=== PATIENT | male | born 1960 | race Caucasian/White ===

== ENCOUNTER 2019-06-05 11:25 | Inpatient (IN) | payer OTHER, SELFPAY ==
[2019-05-19 13:52] VITALS: BMI 34.1
[2019-06-05] VITALS (15 sets, daily range): BP systolic 117–165; BP diastolic 86–103; PULSE 18–108; RESP 9–18; TEMP 35.6–37.4; O2SAT 91–98; BMI 34.1
--- NOTE | 2019-06-05 | DI.RAD.S_ITS ---
PROCEDURE: XR LUMBAR SPINE 2-3V INDICATIONS: L4-5 TLIF TECHNIQUE: 3 views of the lumbar spine were acquired. COMPARISON: [facility] Outside Film, MR, MR LUMBAR SPINE WITHOUT CONTRAST, 01/15/2019, 8:00. [facility], CR, XR LUMBAR SPINE 2 OR 3 VIEWS, 07/29/2017, 10:32. FINDINGS: Bones: Anatomic alignment is established by recent placement of transverse pedicle screws and bilateral vertical fixation rods spanning the L4-L5 level with reference to prior plain film and MR scanning. The operative intervention also includes placement of an interbody cage disc prosthesis device, centrally positioned. Soft tissues: Overlying bowel gas pattern is normal. No suspicious soft tissue calcifications. IMPRESSION: Normal alignment established postoperatively. Dictated by: Haris Gonzalez M.D. on 06/05/2019 at 16:18 Approved by: Haris Gonzalez M.D. on 06/05/2019 at 16:21
[2019-06-05] MEDS: LACTATED RINGERS 1,000 ML 42 ML IV ×2 (12:08→15:23)
--- NOTE | 2019-06-05 13:00 | PM.PREOP ---
Pre-operative Note Interval Note History & Physical reviewed/Exam performed by Physician: Yes Changes to H&P: No
[2019-06-05] MEDS: CLINDAMYCIN 900 MG/50 ML PIGGYBACK 50 MG IV ×2 (13:21→21:18)
--- NOTE | 2019-06-05 14:00 | SUR.OPER ---
Prone on spine table, head in foam head support, padded chest and pelvic supports, gel pad at knees, lower legs supported by pillows; nipples, genitalia and toes free of pressure, arms secured on foam padded arm boards at <90 degrees abduction. Tape over blanket at thigh secured to table.
[2019-06-05] MEDS: BUPIVACAINE LIPOSOME 266 MG/20 ML VIAL INJ (14:07)
[2019-06-05] MEDS: BUPIVACAINE 0.25% W/ EPI (PF) 10 ML VIAL 30 ML INJ (14:08)
--- NOTE | 2019-06-05 15:59 | P.OP_ITS ---
Operative Date/Time/Diagnoses Date of procedure: 06/05/19 Time of procedure: 13:59 Pre-op diagnosis: 1. L4-5 spinal stenosis 2. L4-5 spondylosis with radiculopathy Post-op diagnosis: same Procedure & Clinicians Procedure: 1. L4-5 Postero-lateral and posterior interbody fusion 2. L4-5 interbody cage placement. 3. L4-5 decompressive laminectomy with bilateral facetecomies 4. L4-5 Posterior non-segmental instrumentation 5. [place] of bone marrow from iliac crest 6. Utilization of microsurgical technique and operating microscope Same procedure as scheduled: Yes Indications: Patient has been having chronic back pain and worsening lumbar radiculopathy. Patient failed multiple conservative management with worsening pain weakness and numbness in her lower extremity. Patient has been having difficulty performing activity of daily living. After discussing risks benefits of treatment options, patient elected proceed with surgery. Surgeon: Alejandro Forman Medical Operations Supervisor: Yolande Snider'Brien Click Yes if Unassisted: No Anesthesia Type: General Operative Notes Closure Type: primary Specimen(s): none sent Prosthetic devices, grafts, tissues, transplants, or devices: Globus revolve screws, Rise cage Estimated Blood Loss (mL): 50 Blood products transfused: none Procedure in detail: Patient was seen in the preoperative area. Risks and benefits of the surgery was discussed with the patient. Informed consent was obtained from the patient and placed in the chart. Surgical site was marked. Patient was taken to the operative room. General anesthesia was administered. Prophylactic antibiotic was given to the patient less than 30 min before the incision was made. Patient was placed into a prone position on the T[place] table. Patient's back was then prepped and draped in the sterile fashion. Time- out was performed at this time. Using AP and lateral C-arm imaging the interval between L4-5 was identified and marked on patient's back. A 2 inch incision 2 in from midline was made on the right side first. The fascia was incised in line with skin incision. Globus MARS retractors was placed inside the incision and docked onto the L4 lamina. Using microsurgical technique and operating microscope, a L4 laminectomy and L4- 5 facetectomy was performed using a Kerrison rongeur. Patient was found have severe central and neural foramen stenosis which was fully decompressed after the decompression was completed. The decompression rendered the L4-5 level grossly unstable and required a fusion procedure at the same time. The disc space at L4-5 was identified. And a total diskectomy was performed at L4-5 level. The endplates were decorticated using a rasp and shaver. The total diskectomy and decortication was performed at L4-5 level in order to to accomplish a L4-5 fusion. The local bone from the laminectomy and facetectomy was saved for local bone grafting. After the total diskectomy and decortication was completed, Bio4 bone graft material was combined with local bone that was harvested earlier. At this time, a separate skin is incision was made over the iliac crest. A Jamshidi needle was inserted into the iliac crest through a separate skin incision. 5 cc of bone marrow aspiration was obtained through the separate skin incision using a Jamshidi needle from the iliac crest. The bone marrow aspiration was combined with local bone and the Bio4 bone grafting material. The bone grafting material was placed into the L4-5 interbody space along with a expandable cage. The cage was expanded to its maximum height using the torque limiting screwdriver. At this time a mirror image incision was made on the left side. The fascia was incised in line with the skin incision. Globus MARS retractor was inserted and docked onto the L4-5 posterolateral gutter. Using the power drill, posterior- lateral decortication was performed at L4-5 level until bleeding cortical bone was identified. The remaining bone grafting material was placed into the L4-5 posterior lateral gutter he order to accomplish posterolateral fusion at the L4- 5 level. Using the double C-arm technique, pedicle screws were placed into the L4-5 pedicles bilaterally. This was done by placing the Jamshidi needle into the pedicles, then placing the guidewires over the Jamshidi needle, and finally placing the cannulated screws over the guidewires bilaterally. After the pedicle screws were placed, 2 titanium rods was locked into the heads of the pedicle screws using locking caps and torque limiting screwdriver. After all the hardware was placed, and confirmed with AP and lateral C-arm imaging, the wound was then irrigated with sterile normal saline and packed with Ray-Jesús gauze for 3 min to accomplish hemostasis. After the gauze was removed the deep fascia was closed with #1 Vicryl suture. The subcutaneous layer was closed with 2-0 Vicryl. The skin was closed with skin kristel. Patient tolerated the procedure well. There were no complications. Complications: none Post-operative Condition: stable Disposition: PACU Plan for aftercare: Admit to inpatient
[2019-06-05] MEDS: HYDROMORPHONE 2 MG INJ IV ×5 (16:22→17:10)
[2019-06-05] MEDS: hydrOXYzine 50 MG/ML INJ 25 MG IM (17:44)
--- NOTE | 2019-06-05 18:08 | SUR.PHASEI ---
Transfer note from PACU: Received handoff report from Esther Shepard RN and continued care at 1740. VSS. O2 Sat WNL on 4L/SOLAR SALES CONSULTANT. Pain level 10. Achy back\leg pain. Medicated per orders. Report called by previous HAZARD MITIGATION OFFICER. Stable for transfer to IP Room 212. VSS on arrival. at bedside. handoff report given to Deepa Augustine RN. Transported with O2 4L/SOLAR SALES CONSULTANT. Sats 93-94% Dressing to back CDI.
[2019-06-05] MEDS: hydrOXYzine pamoate 25 MG CAPSULE PO (18:31)
[2019-06-05] MEDS: OXYCODONE IR 10 MG TABLET PO ×2 (18:31→21:17)
[2019-06-05] MEDS: SODIUM CHLORIDE 0.9% 1,000 ML 100 ML IV (18:34)
[2019-06-05] MEDS: PRAVASTATIN 20 MG TABLET 80 MG PO (21:17)
[2019-06-05] MEDS: DOCUSATE 100 MG CAPSULE PO (21:17)
[2019-06-05] MEDS: LORATADINE 10 MG TABLET PO (21:17)
[2019-06-05] MEDS: SENNOSIDES 8.6 MG TABLET 17.2 MG PO (21:17)
[2019-06-05] MEDS: DULOXETINE 20 MG CAPSULE 80 MG PO (21:19)
[2019-06-06 00:20] VITALS: BP 127/76; PULSE 93; RESP 16; TEMP 36.3; O2SAT 97
[2019-06-06] MEDS: OXYCODONE IR 10 MG TABLET PO (02:52)
[2019-06-06 03:14] VITALS: BP 150/89; PULSE 100; RESP 20; TEMP 36.6; O2SAT 95
[2019-06-06] MEDS: CLINDAMYCIN 900 MG/50 ML PIGGYBACK 50 MG IV (05:28)
[2019-06-06] MEDS: SODIUM CHLORIDE 0.9% 1,000 ML 100 ML IV (05:29)
[2019-06-06 08:00] VITALS: BP 127/75; PULSE 86; RESP 16; TEMP 36.8; O2SAT 94
--- NOTE | 2019-06-06 08:55 | P.PN_ITS ---
Subjective Subjective Date Patient Seen: 06/06/19 Time Patient Seen: 08:56 Interval history: Postop day 1 status post L4-[address] Forman. Pain well controlled this morning with oxycodone, and Vistaril. Patient was provided a script for [place] in the office and would like to try [place] in the hospital. Did require oxygen last night. He does not have a history of sleep apnea that he knows of. He is voiding without difficulty or assistance. Denies chest pain or shortness of breath. Exam Vital Signs (past 8 hours): - 06/06/19 03:14 06/06/19 08:00 Temperature 97.8 F 98.2 F Pulse Rate 100 H 86 Respiratory Rate 20 16 Blood Pressure 150/89 H 127/75 Pulse Oximetry 95 94 Oxygen Delivery Method Nasal Cannula Oxygen Flow Rate 2 Narrative Exam Narrative: Patient is sitting up in no acute distress. He is alert and orient x3. Calves are soft, compressible, nontender bilaterally. SCDs are in place and on. He is able to actively dorsiflex plantar flex. Sensation intact to light touch of bilateral lower extremities. Assessment & Plan Post-op Assessment and plan (1) S/P lumbar fusion: Postoperative Procedures: Procedures Operation Date: 06/05/19 13:45 Actual Procedures Side Surgeon p L4-5 TLIF Not Applicable Alejandro Forman MD Patient will mobilize with Physical therapy this morning. No excessive bending, lifting, or twisting. He is voiding without difficulty or assistance. His pain is well controlled, and he will try taking [place] while in the hospital for pain control. If patient is mobilizing safely, with adequate pain control he may be able to discharge home this afternoon. Quality VTE Deep Vein Thrombosis/Pulmonary Embolism Present on Admission: No
[2019-06-06] MEDS: DOCUSATE 100 MG CAPSULE PO (09:51)
[2019-06-06] MEDS: HYDROCODONE/ACET 10/325 TABLET 1 TAB PO ×2 (09:51→12:57)
[2019-06-06 10:03] VITALS: PULSE 95; RESP 14; O2SAT 95
[2019-06-06 10:19] VITALS: O2SAT 94
--- NOTE | 2019-06-06 10:19 | PC.NURSE ---
Addendum entered by Reba Camarena R.N. 06/06/19 13:14: Discharge: Reviewed all d/c instructions thoroughly with patient and his . Reviewed s/sx with which to call MD office. Reinforced spine precautions. Instructed to leave new dressing on until follow up appt. Follow up as previously scheduled. All personal belongings sent with patient at time of discharge. Sent w/ script for Vistaril, already has other scripts that he filled pre-op. Verbalized understanding of d/c instructions and stated no further questions. Wheeled out to private vehicle by nursing staff. Addendum entered by Reba Camarena R.N. 06/06/19 12:08: Surgical dressing removed and replaced with Coversite dressing per PA's order. Two parallel incisions on either side of spine were well-approximated with kristel. Has bruising around incision sites, but no active bleeding or drainage. Patient has been cleared by PT and OT and plans to head home after lunch. Addendum entered by Reba Camarena R.N. 06/06/19 11:34: Maintaining room air sats 94-95%, improves with activity. Working with PT at this time. Tolerating Vicodin without issue, reports pain well-managed. Original Note: Shift summary: Alert and oriented X3. Removed O2 and he's been maintaining 92-94% on room air. Encouraged coughing and deep breathing. Lungs CTA. HRR. Dressing to mid back C/D/I. CMS+, denies paresthesias. Reported 3/10 back pain at rest- medicated with 1 tab 10/325 Vicodin for the same. IVF per orders, site in R wrist WNL. Able to make needs known and calls appropriately. May d/c home this afternoon if cleared by PT/OT. Call light and belongings within reach, bed alarm on.
[2019-06-06 11:08] VITALS: O2SAT 96
--- NOTE | 2019-06-06 11:09 | OT.IP.EVAL ---
Current Diagnoses Other secondary scoliosis, lumbar region (06/05/19) Spondylolisthesis, lumbar region (06/05/19) Spinal stenosis, lumbar region without neurogenic claudication (06/05/19) Arthrodesis status (06/05/19) Surgery Performed Operation Date: 06/05/19 13:45 Actual Procedures p L4-5 TLIF(Not Applicable) - Alejandro Forman MD Past Medical History (Last Updated 05/21/19 @ 07:23 by Lauren Hassan RN) Acid reflux (Acute) Ascending aortic aneurysm (Acute) Bipolar disorder (Acute) BPH (benign prostatic hyperplasia) (Acute) Helicobacter pylori duodenitis (Acute) Hepatitis (Acute) HLD (hyperlipidemia) (Acute) HTN (hypertension) (Acute) Migraines (Acute) Osteoarthritis (Acute) Sciatica (Acute) Seasonal allergies (Acute) Sinusitis (Acute) Spondylolisthesis of lumbar region (Acute) Surgical History (Last Updated 05/19/19 @ 14:30 by Lauren Hassan RN) History of ankle surgery (Acute) History of surgery (Acute) History of surgery (Acute) Hx of shoulder surgery (Acute) Hx of shoulder surgery (Acute) S/P cervical spinal fusion (Acute ~2004) Occupational Therapy Inpatient Evaluation/Re-Eval M1 PT/OT-IP Prior Functional Status Start: 06/06/19 11:56 Freq: NEEDED Status: Active Protocol: Document 06/06/19 15:37 CGR (Rec: 06/06/19 15:50 CGR [email or web address]) Medical Review Prior Functional Status Medical History Reviewed Yes Diet/Fluid Consistency Regular Communication No problems with communication . Mobility and Gait Limited with extended standing /sitting/walking. Did not use any AD but does have FWW. Activities of Daily Living and IADL's Independent with ADL & IADL's Prior Functional Level (Other details) Driving limited to 45 minutes. Able to do grocery shopping but needed to use grocery cart for support. Light activities around the home. 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 Has had to verbally instruct his clients how to fix items. Social History Household Members spouse Living Arrangements House Number of Floors (Floors) One Floor Number of Stairs To Enter/Railing? 4 steps, handrail right with ascension. Home Environment High Toilet,Tub/Shower Home Equipment Front Wheel Walker Employment Status Self-Employed Additional Social History Comment Pt has his own [employer]. M2 OT-IP Current Condition Start: 06/06/19 15:36 Freq: Status: Active Protocol: Document 06/06/19 15:37 CGR (Rec: 06/06/19 15:50 CGR [email or web address]) Occupational Therapy Current Condition Current Condition Evaluation Date 06/06/19 Treatment Diagnosis L4-5 TLIF Diagnosis Onset Date 06/05/19 Post Operative Precautions Lumbar Precautions Log Roll,No Twisting,Limit Bending,Lifting Restriction of 10 lbs,Gait Belt above Incisional Area M3 OT- IP Subjective and Pain Start: 06/06/19 15:36 Freq: Status: Active Protocol: Document 06/06/19 15:37 CGR (Rec: 06/06/19 15:50 CGR [email or web address]) OT- Subjective Occupational Therapy Visit Type Type Initial Evaluation Visit Start Time 10:08 Visit Stop Time 11:09 Total Visit Minutes 61 Notes P.T. entering as OT exited. Occupational Therapy Visit Comments Patient Comments I am ready to go home. OT Pain Assessment Pain When Pain Assessed At Rest Pain Present Pain Present Pain Reported Location back Intensity 2 Scale Used Numeric (1 - 10) Management Techniques Distraction,Re-positioning M4 OT- IP ADL's Start: 06/06/19 15:36 Freq: Status: Active Protocol: Document 06/06/19 15:37 CGR (Rec: 06/06/19 15:50 CGR [email or web address]) OT [id number] Comments OT Self-Feeding Comments not meal time OT ADL-Grooming General Evaluation Grooming Ability Independent Areas Needing Assistance Retrieving/Set-up of Grooming Items,Combing/Brushing Hair, Face Washing Comments OT Grooming Comments stnading at sink OT ADL-Oral Care General Eval Oral Care Ability Independent Areas of Assistance Brushing Teeth Comments Oral Care Comments standing at sink OT ADL-Dressing General Eval Upper Body Dressing Ability Independent Lower Body Dressing Ability Independent Areas Needing Assistance Retrieving/Set-up of Clothing, Underpants/Brief,Socks Comments OT Dressing Comments Pt was able to don socks and underwear by bringing his foot to his knee. OT ADL-Toileting General Evaluation Toileting Ability Independent Devices Toileting Assistive Devices Grab Bars OT ADL-Bathing Comments OT Bathing Comments not performed in this session. M5 OT- IP IADL's Start: 06/06/19 15:36 Freq: Status: Active Protocol: Document 06/06/19 15:37 CGR (Rec: 06/06/19 15:50 CGR [email or web address]) OT-Instrumental Activities of Daily Living Deficits IADL Deficits Identified No Deficits Home Safety Awareness Awareness of Need for Assistance at Home Good Awareness Ability to Problem Solve Emergency Able to Problem Solve Situations Medication Management Medication Management No Deficits Identified Money Management Money Management No Deficits Identified Meal Preparation Meal Preparation No Deficits Identified Real Estate Site Analyst Real Estate Site Analyst No Deficits Identified M6 OT- IP Functional Cognition Start: 06/06/19 15:36 Freq: Status: Active Protocol: Document 06/06/19 15:37 CGR (Rec: 06/06/19 15:50 CGR [email or web address]) Cognitive Factors Limiting Selfcare Function Cognitive Ability Level of Alertness Alert Patient Orientation Name,Age,Birthday,Month,Date, Year,Day of Week,Place, Situation Attention Span Ability Capable of Focused Attention, Capable of Sustained Attention Ability to Follow Commands Able to Follow Multi-Step Commands Memory Description No Deficits Noted Safety Awareness No Deficits Noted Problem Solving Ability No deficits Noted Executive Function Ability No Deficits Noted Abstract Thinking Ability No Deficits Noted OT- Vision and Hearing OT- Hearing Assessment OT- Hearing Assessment WFL OT- Vision Assessment Visual Acuity Glasses All The Time Visual Attentiveness WFL Occular Pursuits WFL Visual Convergence WFL Visual Acharya WFL M7 OT- IP Mobility and Balance Start: 06/06/19 15:36 Freq: Status: Active Protocol: Document 06/06/19 15:37 CGR (Rec: 06/06/19 15:50 CGR [email or web address]) OT- Bed Mobility Assessment Rolling Type of Rolling Log Rolling,Roll to Right Level of Assistance Independent Supine to Sit Supine to Sit Assist Independent Scooting Scooting to Edge of Bed Independent OT-Transfer Assessment Sit to and From Stand Sit to and from Stand Standby Assistance Transfers Transfer Ability Standby Assistance Technique Transfer Destination Bed,Chair,Toilet Transfer Technique Stand Step Pivot Devices Transfer Assistive Devices Gait Belt,Front Wheeled Walker OT- Gait Assessment Gait Gait Assistance Required: Standby Assistance Assistive Devices Assistive Device Gait Belt,Front Wheeled Walker OT- Balance Assessment Sitting Balance and Reactions Static Sitting Balance Ability Good Dynamic Sitting Balance Ability Fair M8 OT- IP Objective Assessments Start: 06/06/19 15:36 Freq: Status: Active Protocol: Document 06/06/19 15:37 CGR (Rec: 06/06/19 15:50 CGR [email or web address]) OT Gross Range of Motion Upper Extremity Range of Motion Assessment Within Functional Limits OT Strength Upper Extremity Strength Assessment Within Functional Limits OT- Coordination Assessment Upper Extremity Finger to Nose Test Within Functional Limits Finger Tapping Test Within Functional Limits OT-Muscle Tone Assessment Muscle Tone WNL Yes OT Sensation Assessment Edema Edema Absent M9 OT- IP Assessment and Plan Start: 06/06/19 15:36 Freq: Status: Active Protocol: Document 06/06/19 15:37 CGR (Rec: 06/06/19 15:50 CGR [email or web address]) OT Summary Assessment and Plan Potential Rehabilitation Potential Excellent Analytic Complexity at Evaluation Low Summary OT Impairments Pain,Functional Mobility, Shower Transfers Progress Towards Goals Progressing Toward Goals,Safe For Discharge,Goals Met Assessment Summary Pt presents as a low complexity evalution. Pt able to perform LB dressign maintaining his back precautions without AD. Pt safe with self care. No further OT needs. Frequency of Treatment Frequency Of Treatment Discharge Discharge Recommendations OT Discharge Recommendations Home
--- NOTE | 2019-06-06 11:44 | CM.IDA ---
Initial DCP Assessment Note: Pt is a 58 yo male, resident of [facility], now POD#1 from spinal surgery w/ Dr Forman PCP: Jamin Altman Payer: Yvon Reviewed chart, pt discussed in multidisciplinary rounds this morning, pt has planned for home, DC order from Ortho PA has already been initiated this morning. Met w/pt this morning, explained role. Pt eager to return home after therapy session this morning, spouse and family will assist. No needs expected from DC planning team today, although will remain available in case this changes. TOSHIA Ramos
--- NOTE | 2019-06-06 12:28 | PT.IIE ---
Current Diagnoses Other secondary scoliosis, lumbar region (06/05/19) Spondylolisthesis, lumbar region (06/05/19) Spinal stenosis, lumbar region without neurogenic claudication (06/05/19) Arthrodesis status (06/05/19) Surgery Performed Operation Date: 06/05/19 13:45 Actual Procedures p L4-5 TLIF(Not Applicable) - Alejandro Forman MD Surgical History (Last Updated 05/19/19 @ 14:30 by Lauren Hassan RN) History of ankle surgery (Acute) History of surgery (Acute) History of surgery (Acute) Hx of shoulder surgery (Acute) Hx of shoulder surgery (Acute) S/P cervical spinal fusion (Acute ~2004) Medical History (Last Updated 05/21/19 @ 07:23 by Lauren Hassan RN) Acid reflux (Acute) Ascending aortic aneurysm (Acute) Bipolar disorder (Acute) BPH (benign prostatic hyperplasia) (Acute) Helicobacter pylori duodenitis (Acute) Hepatitis (Acute) HLD (hyperlipidemia) (Acute) HTN (hypertension) (Acute) Migraines (Acute) Osteoarthritis (Acute) Sciatica (Acute) Seasonal allergies (Acute) Sinusitis (Acute) Spondylolisthesis of lumbar region (Acute) Physical Therapy Inpatient Evaluation/Re-Eval M1 PT/OT-IP Prior Functional Status Start: 06/06/19 11:56 Freq: NEEDED Status: Active Protocol: Document 06/06/19 11:10 NFW (Rec: 06/06/19 12:28 NFW [id number]) Medical Review Prior Functional Status Medical History Reviewed Yes Diet/Fluid Consistency Regular Communication No problems with communication . Mobility and Gait Limited with extended standing /sitting/walking. Did not use any AD but does have FWW. Activities of Daily Living and IADL's Independent with ADL & IADL's Prior Functional Level (Other details) Driving limited to 45 minutes. Able to do grocery shopping but needed to use grocery cart for support. Light activities around the home. 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 Has had to verbally instruct his clients how to fix items. Social History Household Members spouse Living Arrangements House Number of Floors (Floors) One Floor Number of Stairs To Enter/Railing? 4 steps, handrail right with ascension. Home Environment High Toilet,Tub/Shower Home Equipment Front Wheel Walker Employment Status Self-Employed M2 PT-IP Current Condition Start: 06/06/19 11:56 Freq: NEEDED Status: Active Protocol: Document 06/06/19 11:10 NFW (Rec: 06/06/19 12:28 NFW [id number]) Physical Therapy Current Condition Current Condition Evaluation Date 06/06/19 Treatment Diagnosis s/p L4-5 lumbar fusion w/ interbody cage placement Precautions Lumbar Precautions Log Roll,No Twisting,Limit Bending,Lifting Restriction of 10 lbs,Gait Belt above Incisional Area Weight Bearing Status Weight Bearing Status Full Weight Bearing M3 PT-IP Subjective Start: 06/06/19 11:56 Freq: NEEDED Status: Active Protocol: Document 06/06/19 11:10 NFW (Rec: 06/06/19 12:28 NFW [id number]) Subjective Physical Therapy Visit Type Type Initial Evaluation Visit Start Time 11:10 Visit Stop Time 11:40 Total Visit Minutes 30 Number of CHRONIC CONDITION NURSE Visits 0 Physical Therapy Visit Comments Patient Comments Patient very pleased with results of surgery. Currently minimal complaints of pain in LB or LEs. Patient Goals Return home with . Therapy Pain Assessment Pain When Pain Assessed During Mobility Pain Present Pain Present Denied Pain M4 PT-IP Mobility and Gait Start: 06/06/19 11:56 Freq: NEEDED Status: Active Protocol: Document 06/06/19 11:10 NFW (Rec: 06/06/19 12:28 NFW [id number]) PT-Bed Mobility Assessment Rolling Type of Rolling Log Rolling,Bilateral Level of Assist Independent Supine to Sit Supine to Sit Independent Sit to Supine Sit to Supine Independent Scooting Scooting to Edge of Bed Independent Scooting Up and Down in Bed Independent PT-Transfer Assessment Sit to and From Stand Sit to and from Stand Independent Equipment Transfer Assistive Device Front Wheeled Walker Orthotic/Prosthetic Devices or Brace: No Transfers Transfer Destination Bed,Chair Transfer Ability Level of Assist Independent Comments Mobility Comments Patient showing good body mechanics with bed mobility activities. No assistance required and minimal cuing. Gait Assessment Gait Gait Assistance Required: Standby Assistance Distance (Feet) 500 Able to Maintain Weight Bearing Status Yes During Gait Assistive Devices Assistive Device Gait Belt,Front Wheeled Walker Orthotic/Prosthetic Devices or Brace: No Gait Deviations General Gait Pattern Within Normal Limits Comments Gait Comments Used FWW initially for the first 100', no deviations noted. Ambulated another 400' SBA no walking aids with good form and pace. Stair Climbing Assessment Evaluation Level of Assist On Stairs Independent Devices Stair Climbing Assistive Devices Left Railing,Right Railing Technique/Endurance Stair Climbing Direction Ascend and Descend Stair Climbing Technique Step Over Step Number of Steps Climbed 3 Query Text: Stair Climbing Set # Repetitions (reps) 4 Comments Stair Climbing Comments After instruction, good form used with ascending and descending stairs. PT-Balance Assessment Sitting Balance and Reactions Static Sitting Balance Ability Normal Dynamic Sitting Balance Ability Normal Standing Balance and Reactions Static Standing Balance Ability Normal Dynamic Standing Balance Ability Normal Comments Other Balance Tests/Deviations/Treatment Able to toe and heel walk : without difficulty. M5 PT-IP Objective Assessments Start: 06/06/19 11:56 Freq: NEEDED Status: Active Protocol: Document 06/06/19 11:10 NFW (Rec: 06/06/19 12:28 [facility] [id number]) Orientation Orientation/Cognition Level of Alertness Alert Orientation Name,Age,Birthday,Month,Date, Year,Day of Week,Place, Situation Language Function Ability No Deficits Noted Safety Awareness Understands Safety Issues Gross Range of Motion Upper Extremity ROM Assessment Within Functional Limits Strength Upper Extremity Strength Assessment Within Functional Limits Lower Extremity Strength Assessment Within Functional Limits Muscle Tone Muscle Tone WNL Yes M6 PT-IP Treatment Start: 06/06/19 11:56 Freq: NEEDED Status: Active Protocol: Document 06/06/19 11:10 NFW (Rec: 06/06/19 12:28 [facility] [id number]) Physical Therapy Treatment Education Education Provided Precautions,Weight Bearing Status,Post-Op Packet,Safety Other Treatments Other Treatment Performed Instruction of pacing of activities as he recovers from surgery. Given basics of proper body mechanics to protect the lumbar spine. Recommended that patient start a walking program starting with 5 minutes three times a day and to gradually increase by one minute daily to 20 minutes. Once at 20 minutes decrease frequency to BID but to continue to increase time to 30 minutes. M7 PT-IP Assessment and Plan Start: 06/06/19 11:56 Freq: NEEDED Status: Active Protocol: Document 06/06/19 11:10 NFW (Rec: 06/06/19 12:28 [facility] [id number]) PT Summary Assessment and Plan Potential Rehabilitation Potential Excellent Status of Condition at Evaluation Stable Summary Impairments Activity Tolerance Progress Towards Goals Progressing Toward Goals,Safe For Discharge Assessment Summary Pt s/p L4-5 TLIF. Currently has minimal complaints of pain in LB spine and feels that his strength in returning into LEs. He reveals good form with bed mobilities, he is safe walking without any assistive device. He is able to negotiate stairs using single handrail without difficulty. Stressed pacing of activities and the proper use of body mechanics with home/work activities. Goals Bed Mobility Goal Independent Transfer Goal Independent Gait Goal Independent Frequency of Treatment Frequency Of Treatment Discharge Recommendations To Nursing Amount of Assist Needed Independent Discharge Recommendations PT Discharge Recommendations Home with Assistance
== END 2019-06-06 13:19 | disposition home or self-care (01) | DRG 455 ==
PROVIDERS: Admitting Provider Orthopaedic Surgery Orthopaedic Surgery of the Spine; PCP Ophthalmology; Visit Provider Orthopaedic Surgery Orthopaedic Surgery of the Spine
PROC: 0SG00AJ Fusion of Lumbar Vertebral Joint with Interbody Fusion Device, Posterior Approach, Anterior Column, Open Approach (ICD-10-PCS; principal; 2019-06-05 13:45)
DX: M47.26 Other spondylosis with radiculopathy, lumbar region (principal); M51.16 Intervertebral disc disorders with radiculopathy, lumbar region; M41.56 Other secondary scoliosis, lumbar region; M43.16 Spondylolisthesis, lumbar region; F32.9 Major depressive disorder, single episode, unspecified; I10 Essential (primary) hypertension; E78.5 Hyperlipidemia, unspecified; I71.2 Thoracic aortic aneurysm, without rupture; K21.9 Gastro-esophageal reflux disease without esophagitis; Z87.891 Personal history of nicotine dependence
CPT/HCPCS: 72100; 76000; 97161; 97165; 97530; 97535; C1776; C9290; J0330; J1100; J1170; J2250; J2405; J2704; J3010; J3410

== ENCOUNTER 2023-06-12 06:20 | Inpatient (IN) | payer OTHER, SELFPAY ==
[2019-06-05 18:23] VITALS: BMI 34.1
[2023-06-10 08:30] VITALS: BMI 38.2
[2023-06-12] VITALS (18 sets, daily range): BP systolic 96–149; BP diastolic 53–97; PULSE 18–104; RESP 11–19; TEMP 36.4–37.7; O2SAT 91–96; BMI 38.2
--- NOTE | 2023-06-12 | DI.RAD.S_ITS ---
PROCEDURE: XR LUMBAR SPINE 2-3V INDICATIONS: L2-3 TLIF TECHNIQUE: 3 views of the lumbar spine were acquired. COMPARISON: [facility], CR, XR LUMBAR SPINE 2-3V, 06/05/2019, 15:33. FINDINGS: Intraoperative images demonstrating L2 through L5 posterior fixation there is relatively good anatomic alignment. Intervertebral spacers are present. IMPRESSION: Intraoperative fixation. Dictated by: Ivonne Salas M.D. on 06/12/2023 at 19:33 Approved by: Ivonne Salas M.D. on 06/12/2023 at 19:34
[2023-06-12] MEDS: ALBUTEROL/IPRATROPIUM 3 ML AMPUL INH (07:23)
[2023-06-12] MEDS: LACTATED RINGERS 1,000 ML 42 ML IV ×2 (07:24→09:04)
[2023-06-12] MEDS: ACETAMINOPHEN 325 MG TABLET 975 MG PO (07:24)
[2023-06-12] MEDS: PREGABALIN 75 MG CAPSULE PO (07:24)
--- NOTE | 2023-06-12 07:37 | PM.PREOP ---
Pre-operative Note Interval Note History & Physical reviewed/Exam performed by Physician: Yes Changes to H&P: No
[2023-06-12] MEDS: CEFAZOLIN VIAL 3 GM in SODIUM CHLORIDE 0.9% 100 ML IV ×2 (07:54→16:46)
[2023-06-12] MEDS: BUPIVACAINE 0.25% (PF) 60 ML, EPINEPHrine 0.15 MG INJ (09:01)
[2023-06-12] MEDS: BUPIVACAINE LIPOSOME 266 MG/20 ML VIAL INJ (09:01)
--- NOTE | 2023-06-12 11:54 | P.OP_ITS ---
Operative Date/Time/Diagnoses Date of procedure: 06/12/23 Time of procedure: 07:40 Pre-op diagnosis: 1. L2-3, L3-4 spondylolisthesis 2. L2-3, L3-4 spinal stenosis with neurogenic claudication 3. History of L4-5 fusion with instrumentation Post-op diagnosis: same Procedure & Clinicians Procedure: 1. L2-3, L3-4 posterolateral and posterior interbody fusion 2. L2-3, L3-4 posterior interbody cage placement 3. L4-5 posterior non-segmental instrumentation removal 4. L4-5 revision laminectomy with exploration of fusion 5. L2-3, L3-4, L4-5 posterior segmental instrumentation with pedicle screw placement 6. L4-5 posterolatearl fusion 7. [place] of bone marrow from iliac crest through a separate incision 8. Utilization of microsurgical technique and operating microscope 9. Utilization of robotic asssited navigation Same procedure as scheduled: Yes Indications: Patient has been having chronic back pain and worsening lumbar radiculopathy and symptoms of neurogenic claudication. Patient failed multiple conservative management with worsening pain weakness and numbness in his lower extremity. The patient had prior L4-5 fusion with re tained hardware. Has MRI showing significant L2-3 L3-4 retrolisthesis and severe spinal stenosis correlating with patient's symptoms. Patient has been having difficulty performing activity of daily living. After discussing risks benefits of treatment options, patient elected proceed with surgery. Surgeon: Alejandro Forman Pedicurist: Parris Hairston Click Yes if Unassisted: No Anesthesia Type: General Operative Notes Closure Type: primary Specimen(s): none sent Prosthetic devices, grafts, tissues, transplants, or devices: Globus CREO MIS screws, Rise cages Applied: catheter Estimated Blood Loss (mL): 100 Blood products transfused: none Procedure in detail: Patient was seen in the preoperative area. Risks and benefits of the surgery was discussed with the patient. Informed consent was obtained from the patient and placed in the chart. Surgical site was marked. Patient was taken to the operative room. General anesthesia was administered. Prophylactic antibiotic was given to the patient less than 30 min before the incision was made. Patient was placed into a prone position on the T[place] table. Patient's back was then prepped and draped in the sterile fashion. Time-out was performed at this time. After patient was prepped and draped, patient's PSIS was palpated and marked bilaterally. Small 1 cm incision was made over the PSIS for placement of the reference probes. Two trocar was placed into the PSIS 1 on each side. The reference probe was attached to the trocar of the reference apparatus. At this time the C-arm imaging was used to confirm AP and lateral of L2,L3, L4, L5 vertebrae and merged the C-arm imaging using the [employer] robotic navigation system with the CT of the lumbar spine. After successful merging was completed and confirmed, skin marker was used to gigi out the skin incision using the [employer] robotic arm. Bilateral incision was made at this time. Using patient's previous scar incision was made over the L2, L3, L4, L5 interval on the left side. Fascia was incised in line with skin incision. Patient's previously placed hardware over the L4-5 level was identified by dissecting down to the level the hardware using a Bovie and a Grimes. The locking caps which was removed using [employer] screwdriver. The locking nat was then removed from the tulips of the pedicle screws using a Yuan. The pedicle screws were then removed using the screwdriver. The screws were found to have good purchase. Pre templated trajectory was used and guided using the [employer] robotic navigation system for left L2, L3, L4, L5 pedicle screws and right L2, L3, L4 L5 pedicle screws placement. This was done by using the robotic arm to guide the high-speed bur to make a cortical entry point. Next a drill was placed also using the robotic arm and guided using the navigation system drilling partially through bilateral L2, L3, L4, L5 pedicles. Next L2, L3, L4, L5 pedicle screws it was pre templated and measured was placed onto the power [id number] tank driver and inserted into the pedicles bilaterally. After all 8 screws were placed C-arm imaging was taken of both AP and lateral to confirm the placement. Excellent placement of the screws were confirmed and a matched precisely with the pre planned screw placement using the navigation system. MARs retractor was inserted using [employer] guidence. Alediaus MARS retractors was placed inside the incision and docked onto the L2 and L3 lamina. Using microsurgical technique and operating microscope, a L2, L3 laminectomy and L2-3, L3-4 facetectomy was performed using a Kerrison rongeur. Patient was found have severe lateral recess and neural foramen stenosis which was fully de compressed after the laminectomy facetectomy. The laminectomy and facetectomy was performed in order to decompress patient's cauda equina as well as the nerve roots exiting at the L2-3, L3-4 level. More than 75% of the facets were removed during the process of decompression rendering L2-3, L3-4 level grossly unstable and required a fusion procedure at the same time. The disc space at L2-3, L3-4 was identified, and a total diskectomy was performed at L2-3, L3-4 level. The endplates were decorticated using a rasp and shaver. The total diskectomy and decortication was performed at L2-3, L3-4 level in order to to accomplish a L2- 3, L3-4 fusion. The local bone from the laminectomy and facetectomy was saved for local bone grafting. After the total diskectomy and decortication was completed, Trifecta bone graft material was combined with local bone that was harvested earlier. At this time, a separate skin is incision was made over the iliac crest. A Jamshidi needle was inserted into the iliac crest through a separate skin incision. 5 cc of bone marrow aspiration was obtained through the separate skin incision using a Jamshidi needle from the iliac crest. The bone marrow aspi ration was combined with local bone and the DBM bone grafting material. The bone grafting material was placed into the L2-3, L3-4 interbody space along with a expandable cage. The cage was expanded to its maximum height using the torque limiting screwdriver. The disc preparation as well as the cage insertion were also performed under navigation guidance. After the cage was placed, AP and lateral C-arm imaging was taken to confirm placement of the cage and excellent position was confirmed. The fusion mass on the right side of L4-5 was exposed by performing a right- sided hemilaminectomy at L4-5 level. The hemilaminectomy was performed using the Kerrison rongeur to undercut the lamina as well removing additional epidural scar tissue for purpose of decompressing the epidural space. The fusion mass was explored and was found have visible motion indicating pseudoarthrosis. Globus MARS retractor was inserted and docked onto the L2-3, L3-4, L4-5 posterolateral gutter. Using the power drill, posterior-lateral decortication was performed at L2-3, L3-4, L4-5 level until bleeding cortical bone was identified. The remaining bone grafting material was placed into the L2-3, L3-4, L4-5 posterior lateral gutter he order to accomplish posterolateral fusion at the L2-3, L3-4, L4-5 level. At this time the tulips were attached to the L2, L3, L4-L5 pedicle screw shanks. This was done in L2, L3, L4-L5 pedicles bilaterally. After measuring the length of the rods, they were inserted into the tulips of the pedicle screws and locked in place using locking caps and torque limiting screwdriver bilaterally. Total 8 caps and 2 titanium rods was used in order to complete the posterior instrumentation construct. After all the hardware was placed, and confirmed with AP and lateral C-arm i maging, the wound was then irrigated with sterile normal saline and packed with Ray-Jesús gauze for 3 min to accomplish hemostasis. After the gauze was removed the deep fascia was closed with #1 Vicryl suture. The subcutaneous layer was closed with 2-0 Vicryl. The skin was closed with skin kristel. Patient tolerated the procedure well. There were no complications. Neuro monitoring system was used to monitor patient's neurologic status throughout entire procedure. There was no disturbance of the neural monitoring signals throughout the case. The Operation could not have been safely performed without compromising the technical result or length of the procedure, without the assistance of a skilled neurosurgical physician assistant. The neurosurgical physician assistant was medically necessary for proper positioning, retraction and manipulation of instruments, proper exposure, surgical preparation, and manipulation of tissue. Complications: none Post-operative Condition: stable Disposition: PACU Plan for aftercare: Admit to inpatient hospital
[2023-06-12] MEDS: ALBUTEROL 2.5 MG/3 ML NEB (ADULT) INH (13:05)
[2023-06-12] MEDS: hydrOXYzine 50 MG/ML INJ 25 MG IM (14:00)
[2023-06-12] MEDS: ACETAMINOPHEN 325 MG TABLET 650 MG PO (15:02)
[2023-06-12] MEDS: OXYCODONE IR 10 MG TABLET PO ×2 (15:30→18:35)
--- NOTE | 2023-06-12 16:03 | PT-IP ANOTE ---
PT kami received. EMR reviewed. Checked on pt but pt refused PT. post-op folder provided to pt.
[2023-06-12] MEDS: LACTATED RINGERS 1,000 ML 125 ML IV (16:46)
[2023-06-12] MEDS: hydrOXYzine pamoate 25 MG CAPSULE PO (17:27)
[2023-06-12] MEDS: DOCUSATE 100 MG CAPSULE PO (20:59)
[2023-06-12] MEDS: SENNOSIDES 8.6 MG TABLET 17.2 MG PO (20:59)
[2023-06-12] MEDS: PRAVASTATIN 20 MG TABLET 80 MG PO (20:59)
[2023-06-12] MEDS: PANTOPRAZOLE DR 20 MG TABLET PO (20:59)
[2023-06-12] MEDS: LORATADINE 10 MG TABLET PO (20:59)
[2023-06-12] MEDS: MONTELUKAST 10 MG TABLET PO (20:59)
[2023-06-12] MEDS: DULOXETINE 30 MG CAPSULE 80 MG PO (21:00)
[2023-06-12] MEDS: LOSARTAN 50 MG TABLET PO (21:02)
[2023-06-13] MEDS: CEFAZOLIN VIAL 3 GM in SODIUM CHLORIDE 0.9% 100 ML IV (00:16)
[2023-06-13] MEDS: OXYCODONE IR 10 MG TABLET PO ×7 (00:27→23:47)
[2023-06-13] MEDS: hydrOXYzine pamoate 25 MG CAPSULE PO ×3 (00:28→20:35)
[2023-06-13] MEDS: ACETAMINOPHEN 325 MG TABLET 650 MG PO ×3 (00:28→20:35)
[2023-06-13 02:06] VITALS: BP 113/66; PULSE 85; RESP 17; TEMP 37; O2SAT 94
[2023-06-13 04:00] VITALS: BP 111/70; PULSE 63; RESP 18; TEMP 36.8; O2SAT 95
[2023-06-13] MEDS: LACTATED RINGERS 1,000 ML 125 ML IV (04:32)
[2023-06-13 06:10] LABS: Hematocrit 36.5 % (41-53); Hemoglobin 12.1 g/dL (13.5-17.5)
--- NOTE | 2023-06-13 07:35 | PM.PNPO.1 ---
Subjective Subjective Date Patient Seen: 06/13/23 Time Patient Seen: 07:35 Interval history: Pain has been moderate to severe. Denies fever or chills. No nausea or vomiting. Patient's grandson will be home to assist him. Exam Vital Signs (past 8 hours): - 06/13/23 02:06 06/13/23 04:00 06/13/23 05:27 Temperature 98.6 F 98.2 F Pulse Rate 85 63 Respiratory Rate 17 18 Blood Pressure 113/66 111/70 Pulse Oximetry 94 95 Oxygen Delivery Method CPAP Oxygen Flow Rate 9 3 1 Oxygen Delivery Method CPAP Oxygen Flow Rate 1 Narrative Exam Narrative: 62-year-old male resting comfortably in bed in no apparent distress. Motor function is intact bilateral lower extremities. Sensation grossly intact to light touch bilateral lower extremities. Const General: cooperative and comfortable Nutritional Appearance: average body habitus Orientation: alert Resp Effort & Inspection: normal respiratory effort and able to speak in complete sentences Objective Labs 06/13/23 05:00 Labs: Laboratory Results - last 24 hr 06/13/23 05:00 Hgb 12.1 L Hct 36.5 L PFSH Medical History COPD (chronic obstructive pulmonary disease) Mild ascending aorta dilation MAGI on CPAP HTN (hypertension) Spondylolisthesis of lumbar region Helicobacter pylori duodenitis BPH (benign prostatic hyperplasia) Osteoarthritis Hepatitis Acid reflux HLD (hyperlipidemia) Seasonal allergies Sinusitis Sciatica Migraines Bipolar disorder Surgical History History of prosthetic unicompartmental arthroplasty of right knee History of lumbar spinal fusion (06/05/19) History of surgery History of surgery Hx of shoulder surgery Hx of shoulder surgery S/P cervical spinal fusion (~2004) History of ankle surgery Social History household members: spouse and family Smoking Status: Former smoker alcohol intake: never Assessment & Plan Post-op Postoperative Procedures: Procedures Operation Date: 06/12/23 07:45 Actual Procedure Side Surgeon p L2-3, L3-4 TLIF, L2-5 PSF with revision instrumentation-Robot Alejandro Forman MD Postoperative day: 1 Postoperative status: doing well and marginal pain control Postoperative plan: routine post-op care and ambulate Postoperative plan narrative: Multimodal pain management Discontinue Chávez catheter after mobilizing with physical therapy Discharge likely tomorrow
--- NOTE | 2023-06-13 09:10 | PT.IIE ---
Current Diagnoses Spondylolisthesis, lumbar region (06/12/23) Spinal stenosis, lumbar region with neurogenic claudication (06/12/23) Surgery Performed Operation Date: 06/12/23 07:45 Actual Procedures p L2-3, L3-4 TLIF, L2-5 PSF with revision instrumentation-Robot - Alejandro Forman MD Surgical History (Last Reviewed 06/13/23 @ 07:36 by Mark Draper PA-C) History of ankle surgery History of lumbar spinal fusion (06/05/19) History of prosthetic unicompartmental arthroplasty of right knee History of surgery History of surgery Hx of shoulder surgery Hx of shoulder surgery S/P cervical spinal fusion (~2004) Medical History (Last Reviewed 06/13/23 @ 07:36 by Mark Draper PA-C) Acid reflux Bipolar disorder BPH (benign prostatic hyperplasia) COPD (chronic obstructive pulmonary disease) Helicobacter pylori duodenitis Hepatitis HLD (hyperlipidemia) HTN (hypertension) Migraines Mild ascending aorta dilation MAGI on CPAP Osteoarthritis Sciatica Seasonal allergies Sinusitis Spondylolisthesis of lumbar region Physical Therapy Inpatient Evaluation/Re-Eval M1 PT/OT-IP Prior Functional Status Start: 06/13/23 08:25 Freq: NEEDED Status: Active Protocol: Document 06/13/23 08:40 MB (Rec: 06/13/23 09:09 MB [id number]) Medical Review Prior Functional Status Medical History Reviewed Yes Diet/Fluid Consistency Regular Communication WNLs Mobility and Gait Mod I with rollator or RW Activities of Daily Living and IADL's Mod I Prior Functional Level (Other details) Pt states that he did his bathing, dressing and driving. 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 His grandson works with him and is doing some of their jobs. Social History Household Members spouse,family Living Arrangements House Number of Floors (Floors) One Floor Number of Stairs To Enter/Railing? 1 porch step to enter Home Environment Standard Height Toilet,Tub/ Shower Home Equipment Front Wheel Walker,Four Wheel Walker,Shower Seat without Backrest,Grab Bars In Shower Employment Status Self-Employed M2 PT-IP Current Condition Start: 06/13/23 08:25 Freq: NEEDED Status: Active Protocol: Document 06/13/23 08:40 MB (Rec: 06/13/23 09:09 MB [id number]) Physical Therapy Current Condition Current Condition Evaluation Date 06/13/23 Treatment Diagnosis L2-5 fusion M3 PT-IP Subjective Start: 06/13/23 08:25 Freq: NEEDED Status: Active Protocol: Document 06/13/23 08:40 MB (Rec: 06/13/23 09:09 MB [id number]) Subjective Physical Therapy Visit Type Type Initial Evaluation Visit Start Time 08:40 Visit Stop Time 09:01 Total Visit Minutes 21 Number of BILINGUAL EXECUTIVE ASSISTANT Visits 0 Physical Therapy Visit Comments Patient Comments I've been through this before . Therapy Pain Assessment Pain When Pain Assessed During Mobility Pain Present Pain Present Pain Reported Location back Intensity 6 Description Shooting Pain Management Techniques Distraction,Modification of Treatment,Re-positioning, Timing of Activity with Medications M4 PT-IP Mobility and Gait Start: 06/13/23 08:25 Freq: NEEDED Status: Active Protocol: Document 06/13/23 08:40 MB (Rec: 06/13/23 09:09 [id number]) PT-Bed Mobility Assessment Rolling Type of Rolling Roll to Right Level of Assist Independent,1 Person Assistance Supine to Sit Supine to Sit Independent,1 Person Assistance,Bedrails PT-Transfer Assessment Sit to and From Stand Sit to and from Stand Independent,Standby Assistance ,1 Person Assistance,Use of Upper Extremities Equipment Transfer Assistive Device Gait Belt,Front Wheeled Walker Orthotic/Prosthetic Devices or Brace: No Transfers Transfer Destination Chair Transfer Technique Ambulation Transfer Ability Level of Assist Independent,Standby Assistance ,1 Person Assistance,Use of Upper Extremities Comments Mobility Comments Pt moves cautiously and does well with log roll after instructed in back precautions and log rolling Gait Assessment Gait Gait Assistance Required: Independent,Standby Assistance Distance (Feet) 100 Able to Maintain Weight Bearing Status Yes During Gait Assistive Devices Assistive Device Gait Belt,Front Wheeled Walker Orthotic/Prosthetic Devices or Brace: No Gait Deviations General Gait Pattern Antalgic,Decreased Stride Length Factors Limiting Gait Function Factors Limiting Gait Function Pain Comments Gait Comments Pt gait trains 50'x2, 100'x1 with SBA to mod I with rollator and PT manages IV pole. His gait is slow and he is steady Stair Climbing Assessment Evaluation Level of Assist On Stairs Standby Assistance,Contact Guard Assistance,1 Person Assistance Devices Stair Climbing Assistive Devices Front Wheel Walker Technique/Endurance Stair Climbing Direction Ascend and Descend Stair Climbing Technique Step to Step Number of Steps Climbed 1 Query Text: Stair Climbing Set # Repetitions (reps) 1 Comments Stair Climbing Comments Ed pt in use of RW assistance for ascend and descending porch-like step and pt is able to perform without LOB. He will have grandson assistance at d/c. PT-Balance Assessment Sitting Balance and Reactions Static Sitting Balance Ability Fair Dynamic Sitting Balance Ability Fair Standing Balance and Reactions Static Standing Balance Ability Fair Dynamic Standing Balance Ability Fair Device Used RW M5 PT-IP Objective Assessments Start: 06/13/23 08:25 Freq: NEEDED Status: Active Protocol: Document 06/13/23 08:40 MB (Rec: 06/13/23 09:09 [id number]) Orientation Orientation/Cognition Level of Alertness Alert Orientation Name,Age,Birthday,Month,Date, Year,Day of Week,Place, Situation Language Function Ability No Deficits Noted Safety Awareness Understands Safety Issues Memory Description No Deficits Noted Gross Range of Motion Upper Extremity ROM Assessment Within Functional Limits Lower Extremity ROM Assessment Within Functional Limits Strength Upper Extremity Strength Assessment Within Functional Limits Lower Extremity Strength Assessment Within Functional Limits Comments Strength Comments Deferred MMT post-op Sensation Assessment Sensation Gross Sensation WNL M6 PT-IP Treatment Start: 06/13/23 08:25 Freq: NEEDED Status: Active Protocol: Document 06/13/23 08:40 MB (Rec: 06/13/23 09:09 [id number]) Physical Therapy Treatment Education Education Provided Precautions,Post-Op Packet, Safety M7 PT-IP Assessment and Plan Start: 06/13/23 08:25 Freq: NEEDED Status: Active Protocol: Document 06/13/23 08:40 MB (Rec: 06/13/23 09:09 [id number]) PT Summary Assessment and Plan Potential Rehabilitation Potential Good Status of Condition at Evaluation Stable Summary Impairments Pain Progress Towards Goals Safe For Discharge Assessment Summary Pt is a gentleman who underwent his second back surgery. He reports his first one was with Dr. Forman in 1998. PT provides education about back precautions and log roll technique. Pt has no pain at rest but does have pain with mobility. He does a good job with bed mobility, transfers and gait and several practices of gait and STS transfer. He will have grandson pick him up and assist him at home as his is away d/t recent COVID and not wishing to make pt sick. Frequency of Treatment Frequency Of Treatment Discharge Precautions Lumbar Precautions Log Roll,No Twisting,Limit Bending,Lifting Restriction of 10 lbs,Gait Belt above Incisional Area Weight Bearing Status Weight Bearing Status Weight Bear as Tolerated Recommendations To Nursing Amount of Assist Needed Standby Assistance,1 Person Assist Discharge Recommendations PT Discharge Recommendations Home with 21/01 Assist Available,Outpatient PT Transportation Needs at Discharge Private Vehicle
[2023-06-13 10:00] VITALS: BP 127/82; PULSE 89; RESP 16; TEMP 36.8; O2SAT 93
[2023-06-13] MEDS: DOCUSATE 100 MG CAPSULE PO ×2 (10:05→20:34)
--- NOTE | 2023-06-13 14:08 | CM.DANOTE ---
Patient is a 62 yo male who was admitted on 06/12/23 for TLIF. Pt has [place] for insurance and his PCP is Jamin Altman. EMR was reviewed. Per Ortho PA, pt tolerated procedure well and pain has been moderate and jacinto discontinued today and to work with PT/OT for likely d/c home tomorrow. Per PT, pt was able to participate today and recommending home with assist. 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 Pt states his spouse is active and indep as well but recently tested positive for COVID and has been staying elsewhere so that pt could still have his planned surgery. Pt states his local grandson works with him for employment and has been helping with their scheduled work jobs and grandson plans to be the one to provide transport home and assist until spouse returns home. Pt denies any hx of HH or SNF and does not anticipate any needs at d/c and is hopeful for d/c today vs tomorrow. Plan: SW to follow closely for plan of discharge home via grandson POV and outpt f/u and any further identified discharge planning needs. TOSHIA Carlin Discharge Planning/Care Management CM Discharge Assessment Start: 06/13/23 14:06 Freq: Status: Active Protocol: Document 06/13/23 14:06 (Rec: 06/13/23 14:08 [id number]) Discharge Planning Assessment Assigned Network Manager TOSHIA Maldonado DPOA/Assigned Designee Name spouse Romero Contact Information [phone] Advance Directives? No Advance Directives on File No History Provided By Patient,Family Member,Medical Record Has Patient been admitted in last 30 No days? Prior Living Arrangements House Household Members spouse,family Type of transporation used prior to Drives own vehicle admit Independent with ADL's Yes Is patient alert and oriented? Yes Caregiver for Another No Community Services used prior to Physical Therapy admission: Patient/Family Preference OP PT Therapy Barriers to Discharge No Discharge Plan Home Community Services Physical Therapy Transportation Arrangement Grandson plans to transport at d/c Referrals Initiated None needed Whiteboard Updated in Patient Room with Yes name and ext. # of Network Manager Review Status In Process Please Provide Date Initial DC 06/13/23 Assessment Was Performed Next Review Type Continued Stay Review Pre-Anesthesia Assessment Start: 06/04/23 10:38 Freq: Status: Active Protocol: Document 06/10/23 08:30 CAB (Rec: 06/04/23 12:22 CAB [id number]) Pre-Anesthesia Assessment Preferred Name Marquise Pineda Patient Information Reviewed Via Phone Assessment Assessment Completed With Patient Diagnostic Results BMP/CMP,CBC,EKG Comment Outside labs/EKG scanned Primary Care Provider Kings Rodriguez Seen Specialist in Last 12 Months Yes Specialist Seen Coding Technician,Orthopedist, Hot Baller Comment Pulmonary visit 05/20/23, sleep visit 03/01/23, CT lung scanned Primary Language Belgian Preferred Language Belgian Scale Attendant Required No Height 182.88 cm Weight 127.913 kg Body Mass Index (BMI) 38.2 Hearing Ability Normal Visual Assist Glasses Dentition Type Partial- Lower Barriers to Learning None Other Aids No Hx Anesthesia Reactions No: Morphine-nausea Hx Family Anesthesia Reaction No Hx Malignant Hyperthermia No Hx Blood Transfusions No Anesthesia Review Requested No De Alcholizer No alcohol intake current alcohol intake frequency a few times a month Smoking Status Former smoker how long ago did patient quit smoking Quit 2004 Substance Use Type does not use Pain Present Pain Reported Musculoskeletal Symptoms Abnormal Gait,Back Pain, Difficulty Walking,Joint Pain, Radiating Pain into Limb History of Falling (Recent or History of Yes ) Patient is completely paralyzed or No completely immobile Prosthesis or Orthotic Device Front Wheel Walker Mental Status Oriented to own ability Is patient on oxygen? Yes: 1L02 @ HS Does patient have MOSS/SOB No Hx Sleep Apnea Yes CPAP/BIPAP use prescribed and used routinely Will Bring CPAP/BIPAP DOS Yes Currently Taking a Beta Viky No Hx Chest Pain Yes Hx SOB Yes: hx of MOSS Hx Syncope or Dizziness No Anti-Coagulant Therapy No Has a Coding Technician Yes: Last visit 10/16/[address] Yuen @ [facility] Cardiac Testing Yes: Echo 04/12/23, Stress test @ [facility] 11/19/22 Hx Pacemaker/ICD No Pacemaker Rep Required? No Cardiac Clearance Received Not Applicable Comment Cardiac records scanned Diet Type At Home Regular Dysphagia No Gastrointestinal Symptoms Reflux Urinary Catheter Present No Hx Urinary Self Catheterization No Diabetes No Hx Drug Resistant Organism No Presence of External or Internal Medical Yes: Cervical/Lumbard fusion, Devices right knee, CPAP Received a COVID vaccine? Yes Received all doses? Yes Marital Status Lives With spouse,family Current Living Arrangements House Number of Floors (Floors) One Floor Number of Stairs To Enter/Railing? Ramp Support System Family,Spouse Does the Patient Have Assistance After Yes Surgery Patient Discharge Plan Description Return Home Comment Pt not advised on length of stay per surgeon Feels Safe in Current Environment Yes Been Physically Hurt or Threatened By a No Person in Current Environment Do you have thoughts of harming yourself None or others? Are you currently considering suicide? No Do you have a plan to hurt yourself or No Plan others? Do You Have Any Spiritual Beliefs That No May Affect Your HC Choices? Do You Have Any Cultural Practices That No May Affect Your HC Choices? Who Can We Speak to About Patient's Care Family, friends Identifying Code for Release of Patient Declines to issue Information Health Care Proxy/Next of Kin Romero () Health Care Proxy Emergency Contact Name Romero () Alma Rosa ( daughter) Emergency Contact Phone Number Romero: [phone] Alma Rosa: [phone] Advance Directives? No Power of Farm Products Shipper No PAC Instructions Bring CPAP/BIPAP,Durable medical equipment,Medications to take/avoid,Nasal antibiotic ,No ETOH/petroleum product on skin DOS,NPO,Pre-surgical wash ,Sensory aids,Sturdy shoes/ comfortable clothes,Do not bring valuables and remove jewelry
[2023-06-13 17:00] VITALS: BP 113/68; PULSE 104; RESP 16; TEMP 37.3; O2SAT 95
[2023-06-13] MEDS: PRAVASTATIN 20 MG TABLET 80 MG PO (20:31)
[2023-06-13] MEDS: DULOXETINE 30 MG CAPSULE 80 MG PO (20:32)
[2023-06-13 20:33] VITALS: BP 111/70; PULSE 83
[2023-06-13] MEDS: SENNOSIDES 8.6 MG TABLET 17.2 MG PO (20:33)
[2023-06-13] MEDS: LOSARTAN 50 MG TABLET PO (20:33)
[2023-06-13] MEDS: MONTELUKAST 10 MG TABLET PO (20:33)
[2023-06-13] MEDS: LORATADINE 10 MG TABLET PO (20:34)
[2023-06-13] MEDS: PANTOPRAZOLE DR 20 MG TABLET PO (20:34)
[2023-06-13 21:51] VITALS: BP 115/70; PULSE 88; RESP 16; TEMP 36.7; O2SAT 92
[2023-06-14] MEDS: OXYCODONE IR 10 MG TABLET PO ×3 (04:27→11:06)
[2023-06-14] MEDS: ACETAMINOPHEN 325 MG TABLET 650 MG PO (04:27)
[2023-06-14] MEDS: hydrOXYzine pamoate 25 MG CAPSULE PO (06:26)
--- NOTE | 2023-06-14 06:44 | P.DS_ITS ---
History of Present Illness History of Present Illness Date Patient Seen: 06/14/23 Time Patient Seen: 06:44 Chief complaint: Translam Intrbody Fus./Laminotomy -Robot Narrative: Operative Date/Time/Diagnoses Date of procedure: 06/12/23 Time of procedure: 07:40 Pre-op diagnosis: 1. L2-3, L3-4 spondylolisthesis 2. L2-3, L3-4 spinal stenosis with neurogenic claudication 3. History of L4-5 fusion with instrumentation Post-op diagnosis: same Procedure & Clinicians Procedure: 1. L2-3, L3-4 posterolateral and posterior interbody fusion 2. L2-3, L3-4 posterior interbody cage placement 3. L4-5 posterior non-segmental instrumentation removal 4. L4-5 revision laminectomy with exploration of fusion 5. L2-3, L3-4, L4-5 posterior segmental instrumentation with pedicle screw placement 6. L4-5 posterolatearl fusion 7. [place] of bone marrow from iliac crest through a separate incision 8. Utilization of microsurgical technique and operating microscope 9. Utilization of robotic asssited navigation Same procedure as scheduled: Yes Indications: Patient has been having chronic back pain and worsening lumbar radiculopathy and symptoms of neurogenic claudication. Patient failed multiple conservative management with worsening pain weakness and numbness in his lower extremity. The patient had prior L4-5 fusion with retained hardware. Has MRI showing significant L2-3 L3-4 retrolisthesis and severe spinal stenosis correlating with patient's symptoms. Patient has been having difficulty performing activity of daily living. After discussing risks benefits of treatment options, patient elected proceed with surgery. Surgeon: Alejandro Forman Mattress Inspector: Parris Hairston Click Yes if Unassisted: No Anesthesia Type: General Operative Notes Closure Type: primary Specimen(s): none sent Prosthetic devices, grafts, tissues, transplants, or devices: Globus CREO MIS screws, Rise cages Applied: catheter Estimated Blood Loss (mL): 100 Blood products transfused: none Discharge Providers Provider Date of admission: 06/12/23 06:20 Discharge Date: 06/14/23 Primary care physician: Jamin Altman MD Consults: 06/12/23 14:36 Consult to Occupational Therapy Evaluate & Treat Comment: Physician Instructions: Evaluate and treat Consult to Physical Therapy Evaluate & Treat Comment: Physician Instructions: Evaluate and Treat 06/12/23 15:38 Consult to CAMPUS SAFETY OFFICER - Drafter Civil (Cad) Routine Comment: Discharge provider: Parris Hairston PA-C Summary Hospital Course Discharge Diagnosis: L2-3, L3-4 spondylolisthesis, L2-3, L3-4 spinal stenosis with neurogenic claudication, History of L4-5 fusion with instrumentation; s/p lumbar fusion and posterior hardware revision/extension Hospital Course: Mr Walker'trish hospital course was unremarkable. On the morning of POD# 2, he was feeling well and wanted to go home. He was eating and voiding without difficulty and his pain was well-controlled with oral medication. He was evaluated by PT thoughout his stay and they felt he was appropriate for discharge home w/ assistance; he has his grandson available to help him. Exam Vital Signs (past 8 hours): Oxygen Delivery Method CPAP Oxygen Flow Rate 2 Narrative Exam Narrative: 5/5 strength in hip flexors, quadriceps, hamstrings, DF, PF, EHL bilaterally. Sensation to light touch intact in BLE. Calves soft, compressible, nontender. Dressing placed intraoperatively w/ moderate amount of bloody drainage on left. Objective Labs 06/13/23 05:00 [facility] Medical History COPD (chronic obstructive pulmonary disease) Mild ascending aorta dilation MAGI on CPAP HTN (hypertension) Spondylolisthesis of lumbar region Helicobacter pylori duodenitis BPH (benign prostatic hyperplasia) Osteoarthritis Hepatitis Acid reflux HLD (hyperlipidemia) Seasonal allergies Sinusitis Sciatica Migraines Bipolar disorder Surgical History History of prosthetic unicompartmental arthroplasty of right knee History of lumbar spinal fusion (06/05/19) History of surgery History of surgery Hx of shoulder surgery Hx of shoulder surgery S/P cervical spinal fusion (~2004) History of ankle surgery Social History household members: spouse and family Smoking Status: Former smoker alcohol intake: never Discharge Assessment & Plan Assessment and Plan Assessment: L2-3, L3-4 spondylolisthesis, L2-3, L3-4 spinal stenosis with neurogenic claudication, History of L4-5 fusion with instrumentation; s/p lumbar fusion and posterior hardware revision/extension Plan of Treatment: Discharge home, multimodal pain control, f/u in office as scheduled. Discharge Plan Discharge Plan Patient Disposition: Home Discharge orders & Medications Prescriptions: New oxycodone 5 mg tablet 5 mg PO Q4H PRN (Reason: pain (scale score 4-6)) Qty: 60 0RF acetaminophen 325 mg Tablet 650 mg PO Q6H PRN (Reason: Fever/Mild Pain (1-3)) Qty: 240 0RF docusate sodium 100 mg Capsule 100 mg PO BID PRN (Reason: constipation) Qty: 60 1RF Continued cyclobenzaprine 10 mg Tablet 10 mg PO BEDTIME PRN (Reason: Muscle Spasm) pravastatin 40 mg Tablet 80 mg PO BEDTIME omeprazole 20 mg Capsule,Delayed Release(Dr/Ec) 20 mg PO BEDTIME hydroxyzine HCl 25 mg Tablet 25 mg PO BEDTIME PRN (Reason: Insomnia) duloxetine 60 mg Capsule,Delayed Release(Dr/Ec) 80 mg PO BEDTIME loratadine 10 mg Capsule 10 mg PO BEDTIME losartan 50 mg Tablet 50 mg PO BEDTIME ipratropium-albuterol 0.5 mg-3 mg(2.5 mg base)/3 mL Solution For Nebulization 3 ml INHALATION Q4-6H PRN (Reason: Shortness Of Breath Or Wheezing) alendronate [Fosamax] 70 mg Tablet 70 mg PO QWEEK Patient Comments: Takes on Saturday montelukast 10 mg Tablet 10 mg PO BEDTIME albuterol sulfate 90 mcg/actuation Hfa Aerosol Inhaler 2 puff INHALATION Q4-6H PRN (Reason: Shortness Of Breath) Discontinued hydrocodone-acetaminophen 5-325 mg Tablet 0.5 tab PO Q4-6H PRN (Reason: Pain) naproxen 500 mg Tablet 1,000 mg PO BEDTIME Follow up/Referrals: Alejandro Forman MD [Physician] - As previously scheduled (Follow up with Jj Delgado PA-C, on 06/28/2023 @ 10:00 am at [facility] in [place].) Jamin Altman MD [Primary Care Provider] - Diet/Activity/Treatments Diet: Diet as Tolerated Activity: No deep bending or twisting at the waist. No lifting more than 10 pounds. Cold/Heat Therapy: Heating pad to low back as needed for pain. Skin/Wound/Dressing Care Report to your healthcare provider any signs of infection, such as:: chills, fever, night sweats, unusual drainage and unusual redness Dressing: May shower. Keep dressing as dry as possible. If dressing becomes wet or dirty, remove and replace with clean, dry gauze. No bathing or otherwise soaking incisions. Do not apply any creams, lotions, or ointments to incisions. Visit Report/Discharge Packet Instructions: DI for Transforaminal Lumbar Interbody Fusion, DI for Prescription Opioid Use Stand Alone Forms: Patient Portal/API, Stroke Signs & Symptoms, Surgery Discharge Discharge Data Primary Care Provider: Jamin Altman
[2023-06-14] MEDS: DOCUSATE 100 MG CAPSULE PO (09:04)
[2023-06-14 09:10] VITALS: BP 109/61; PULSE 95; RESP 20; TEMP 36.2; O2SAT 92
--- NOTE | 2023-06-14 09:16 | CM.DPC ---
DCP Cont. Reviewed EMR and team rounds for status updates. Met with pt at bedside to discuss d/c plan for today. Pt was found to be upright in the recliner, alert and oriented/engaging. Pt shares that his grandson will pick him up later this morning, and will plan to provide for all of his care needs until pt's comes back home after having Covid, and was staying at her son's trailer. No further d/c needs identified at this time.
--- NOTE | 2023-06-14 10:37 | PC.NURSE ---
Addendum entered by Darlyn Yoder R.N. 06/14/23 11:07: Pt transportation here Med for pain prior to D/C Pt escorted by staff via W/C to waiting vehicle D/C in stable post op status. Original Note: Pt has discharge orders Saline lock discontinued intact. Dsg to back changed as per orders. Home instructions given w/apparant understanding Awaiting transportation Call light w/in reach.
== END 2023-06-14 11:05 | disposition home or self-care (01) | DRG 454 ==
PROVIDERS: Admitting Provider Orthopaedic Surgery Orthopaedic Surgery of the Spine; PCP Ophthalmology; Referring Provider Orthopaedic Surgery Orthopaedic Surgery of the Spine; Visit Provider Orthopaedic Surgery Orthopaedic Surgery of the Spine
PROC: 0SG10AJ Fusion of 2 or more Lumbar Vertebral Joints with Interbody Fusion Device, Posterior Approach, Anterior Column, Open Approach (ICD-10-PCS; principal; 2023-06-12 07:45)
DX: M43.16 Spondylolisthesis, lumbar region (principal); M96.0 Pseudarthrosis after fusion or arthrodesis; J44.9 Chronic obstructive pulmonary disease, unspecified; G47.33 Obstructive sleep apnea (adult) (pediatric); I10 Essential (primary) hypertension; N40.0 Benign prostatic hyperplasia without lower urinary tract symptoms; M19.90 Unspecified osteoarthritis, unspecified site; K21.9 Gastro-esophageal reflux disease without esophagitis; E78.5 Hyperlipidemia, unspecified; G43.909 Migraine, unspecified, not intractable, without status migrainosus; F31.9 Bipolar disorder, unspecified; M48.062 Spinal stenosis, lumbar region with neurogenic claudication; M54.16 Radiculopathy, lumbar region; Y83.1 Surgical operation with implant of artificial internal device as the cause of abnormal reaction of the patient, or of later complication, without mention of misadventure at the time of the procedure; Z88.6 Allergy status to analgesic agent; Z88.0 Allergy status to penicillin; Z87.891 Personal history of nicotine dependence; Z98.1 Arthrodesis status; Z96.651 Presence of right artificial knee joint; Z79.83 Long term (current) use of bisphosphonates; Z79.1 Long term (current) use of non-steroidal anti-inflammatories (NSAID); Z88.5 Allergy status to narcotic agent
CPT/HCPCS: 36415; 72100; 76000; 85014; 85018; 97161; C1713; C9290; J0171; J0330; J0690; J1100; J1170; J2405; J2704; J3010; J3410; J7613